=== PATIENT | female | born 1950 | race Caucasian/White ===

== ENCOUNTER → 2018-04-05 07:58 | Outpatient (CLI) | payer MEDICARE, BC | END | disposition home or self-care (01) | LOC: D.RAD 07:58 | DX: R13.10 Dysphagia, unspecified (principal) ==

== ENCOUNTER 2018-06-18 09:56 | Outpatient (CLI) | payer MEDICARE, BC | END 2018-06-18 11:25 | LOC: D.OPS 09:56 | DX: R13.10 Dysphagia, unspecified (principal); K21.9 Gastro-esophageal reflux disease without esophagitis; Z01.812 Encounter for preprocedural laboratory examination ==